=== PATIENT | female | born 1975 | race Caucasian/White ===

== ENCOUNTER 2016-12-26 10:35 | Emergency (ER) | payer BC ==
[~2016-12-26] VITALS: Ht 167.6 cm; Wt 63.6 kg
[2016-12-26] MEDS ORDERED: REGLAN10 MG PO (14:29)
[2016-12-26 14:52] VITALS: BP 122/85
== END 2016-12-26 14:53 | disposition home or self-care (01) ==
LOC: EME 10:35
DX: G43.909 Migraine, unspecified, not intractable, without status migrainosus (principal)
CPT/HCPCS: 93005; 99281; 99285; J1200; J1885; J2765